=== PATIENT | male | born 1960 | race Caucasian/White ===

== ENCOUNTER 2023-12-16 12:46 | Outpatient (CLI) | payer MEDICAID | END 2023-12-16 23:59 | disposition home or self-care (01) | LOC: MRI 12:46 | PROVIDERS: ATTEND Nurse Practitioner Adult Health | DX: M51.27 Other intervertebral disc displacement, lumbosacral region (principal); M47.897 Other spondylosis, lumbosacral region; M48.07 Spinal stenosis, lumbosacral region; M43.17 Spondylolisthesis, lumbosacral region | CPT/HCPCS: 72148 ==